=== PATIENT | female | born 1990 | race Caucasian/White ===

== ENCOUNTER 2017-05-10 08:26 | Emergency (ER) | payer OTHER ==
[~2017-05-10] VITALS: Ht 167.6 cm; Wt 60.0 kg
[~2017-05-10 08:26] MED LIST: ADVIL200 M1 OR; AMOXICILLIN500 MG OR; AZITHROMYCIN500 MG PO; CIPRODEX1 ML AD; CONCEPT OB PO; FLUZONE SPLT1 M1 IM; METROGEL VAG0.75 % VA; PREVIFE2 PO; SPRINTEC 2828 DAY PO; TUBERSOL5 MG/0.1 M ID
[2017-05-10] MEDS ORDERED: PENICILLN VK500 MG PO (08:53)
[2017-05-10] MEDS ORDERED: LORTAB 5/3255 MG PO (08:53)
[2017-05-10 09:07] VITALS: BP 119/65
== END 2017-05-10 09:09 | disposition home or self-care (01) | DRG 159 ==
LOC: ED 08:26
DX: K08.89 Other specified disorders of teeth and supporting structures (principal)

== ENCOUNTER 2019-02-15 13:56 | Emergency (ER) | payer MEDICAID ==
[~2019-02-15] VITALS: Ht 167.6 cm; Wt 56.0 kg
[~2019-02-15 13:56] MED LIST changes: +LORTAB 5/3255 MG PO; +PENICILLN VK500 MG PO
[2019-02-15] MEDS ORDERED: AMOXICILLIN/CL875 MG PO (15:49)
[2019-02-15 16:06] VITALS: BP 143/83
== END 2019-02-15 16:03 | disposition home or self-care (01) ==
LOC: ED 13:56
DX: J01.00 Acute maxillary sinusitis, unspecified (principal); M67.471 Ganglion, right ankle and foot; F17.210 Nicotine dependence, cigarettes, uncomplicated